=== PATIENT | male | born 1970 | race Caucasian/White ===

== ENCOUNTER 2019-01-17 10:12 | Emergency (ER) | payer SELFPAY ==
[2019-01-17] MEDS ORDERED: NA CHLORIDE 0.9% 1,000 ML ONE (11:08)
--- NOTE | 2019-01-17 11:10 | EKG ---
Test Date: 2019-01-17 Test Time: 11:01:58 Copy Director: MELANY MEASUREMENT RESULTS: Intervals: Rate: 69 MO: 114 QRSD: 80 QT: 410 QTc: 439 Bradford: P: 73 MO: 114 QRS: 78 T: 67 INTERPRETIVE STATEMENTS: Normal sinus rhythm Normal ECG No previous ECG available for comparison Electronically Signed On 01-17-19 11:09:31 CDT by Gerhard Chaney
[2019-01-17 11:14] LABS: Absolute Lymphocytes (CBC) 0.8 K/uL (0.7-4.9); Absolute Monocytes 0.6 K/uL (0.1-1.3); Absolute Neutrophil 6.2 K/uL (1.8-8.0); Basophils % 0.3 % (0-1.3); Eosinophils % 1.1 % (0-4.4); Hematocrit 49.7 % (39.6-49.0); Lymphocytes % 10.9 % (15.3-44.8); MPV 7.3 fL (7.6-11.3); Monocytes % 7.5 % (3.3-12.3); RBC Red Blood Cell Count 5.01 M/uL (4.33-5.43)
[2019-01-17 11:16] LABS: Protime INR 0.92
--- NOTE | 2019-01-17 11:18 | RAD REPORT ---
EXAM DESCRIPTION: CT - Head Brain Wo Cont - 01/17/2019 11:09 am CLINICAL HISTORY: DIZZINESS Headache, drowsiness. COMPARISON: No comparisons TECHNIQUE: All CT scans are performed using dose optimization technique as appropriate and may inclu de automated exposure control or mA/KV adjustment according to patient size. FINDINGS: The ventricular system is quite prominent in size. This is greater than can be explained b y cortical atrophy. Likely, this represents hydrocephalus.No acute bleed or midline shift. Mild mucoperiosteal thickening is present in the frontal, ethmoid sinuses. Mild mucoperiosteal thicke jevon is seen maxillary antra and sphenoid sinuses. The calvarium is intact. IMPRESSION: The ventricles appear quite enlarged likely representing hydrocephalus. No comparative brain imaging is available at this institution to determine acute versus chronic timeframe for this f inding. Mild mucoperiosteal thickening throughout paranasal sinuses, greatest in anterior ethmoid air cells.
--- NOTE | 2019-01-17 11:21 | RAD REPORT ---
EXAM DESCRIPTION: RAD - Chest Single View - 01/17/2019 11:17 am CLINICAL HISTORY: dizziness Chest pain. COMPARISON: No comparisons FINDINGS: Portable technique limits examination quality. The lungs are grossly clear. The heart is normal in size. No displaced fractures. IMPRESSION: No acute intrathoracic process suspected.
[2019-01-17 11:33] LABS: ALT/SGPT 90 U/L (12-78); AST/SGOT 104 U/L (15-37); Albumin 4.3 g/dL (3.4-5.0); Alkaline Phosphatase 76 U/L (45-117); BUN Blood Urea Nitrogen 7 mg/dL (7-18); Bicarbonate 23 mmol/L (21-32); Bilirubin Direct 0.3 mg/dL (0-0.2); Glucose Level 94 mg/dL (74-106); Magnesium 1.8 mg/dL (1.8-2.4); NT PRO-BNP 11 pg/mL (<125); Potassium 4.6 mmol/L (3.5-5.1); Protein, Total 7.9 g/dL (6.4-8.2); Sodium Level 132 mmol/L (136-145); Troponin (Emerg Dept Use Only) < 0.02 ng/mL (0.0-0.045)
[2019-01-17] MEDS ORDERED: ONDANSETRON 4 MG/2 ML VIAL ONE (11:34)
[2019-01-17] MEDS ORDERED: MECLIZINE HCL 12.5 MG TAB ONE (11:34)
--- NOTE | 2019-01-17 11:53 | ER ---
Nurse's Notes [facility] Name: Herson Guy Age: 48 yrs Sex: Male : 1970 Arrival Date: 01/17/2019 Time: 10:15 Bed 4 Private MD: Diagnosis: Dizziness and giddiness;Hydrocephalus in diseases classified elsewhere;Acute sinusitis;Essential (primary) hypertension Presentation: 01/17 10:20 Presenting complaint: Patient states: "Sinus problems" for 1 week. Went to see Dr Whit bernardo this morning and was referred to ER. Patient reports dizziness. Transition of care: patient was not received from another setting of care. Onset of symptoms was January 12, 2019. Risk Assessment: Do you want to hurt yourself or someone else? Patient reports no desire to harm self or others. Initial Sepsis Screen: Does the patient meet any 2 criteria? No. Patient's initial sepsis screen is negative. Does the patient have a suspected source of infection? No. Patient's initial sepsis screen is negative. Care prior to arrival: None. 10:20 Method Of Arrival: Wheelchair 10:20 Acuity: JASMINE 3 aj Triage Assessment: 10:22 General: Appears in no apparent distress. uncomfortable, Behavior is calm, cooperative. aj Pain: Denies pain. EENT: Reports pain in right eye, right cheek, nose, left cheek and left eye. Neuro: Level of Consciousness is awake, alert, obeys commands, Oriented to person, place, time, situation, Appropriate for age. Respiratory: Airway is patent Respiratory effort is even, unlabored, Respiratory pattern is regular, symmetrical. Derm: Skin is intact, is healthy with good turgor, Skin is pink, warm \\T\\ dry. normal. Historical: - Allergies: 10:22 No Known Allergies; aj - PMHx: 10:22 Hypertension; aj - PSHx: 10:22 None; aj - Immunization history:: Adult Immunizations up to date. - Social history:: Smoking status: Patient uses tobacco products, smokes two packs cigarettes per day. - Ebola Screening: : Patient negative for fever greater than or equal to 101.5 degrees Fahrenheit, and additional compatible Ebola Virus Disease symptoms Patient denies exposure to infectious person Patient denies travel to an Ebola-affected area in the 21 days before illness onset No symptoms or risks identified at this time. Screenin:34 Abuse screen: Denies threats or abuse. Denies injuries from another. Nutritional sv screening: No deficits noted. Tuberculosis screening: No symptoms or risk factors identified. Fall Risk None identified. Assessment: 10:45 General: Appears in no apparent distress. uncomfortable, well developed, Behavior is sv calm, cooperative, appropriate for age. Pain: Complains of pain in forehead, right eye and left eye Pain currently is 5 out of 10 on a pain scale. Quality of pain is described as pressure, Pain began 1 week ago Is continuous. Neuro: Level of Consciousness is awake, alert, obeys commands, Oriented to person, place, time, situation, Moves all extremities. Full function Gait is steady, Speech is normal, Facial symmetry appears normal, Pupils are PERRLA, Reports dizziness, Denies blurred vision numbness diplopia. Cardiovascular: Heart tones S1 S2 present Rhythm is sinus rhythm. Respiratory: Airway is patent Respiratory effort is even, unlabored, Respiratory pattern is regular, symmetrical, Breath sounds are clear bilaterally. Derm: Skin is pink, warm \\T\\ dry. 11:30 Reassessment: Patient appears in no apparent distress at this time. No changes from sv previously documented assessment. Patient and/or family updated on plan of care and expected duration. Pain level reassessed. Patient is alert, oriented x 3, equal unlabored respirations, skin warm/dry/pink. 12:00 Reassessment: Patient appears in no apparent distress at this time. Patient and/or sv family updated on plan of care and expected duration. Pain level reassessed. Patient is alert, oriented x 3, equal unlabored respirations, skin warm/dry/pink. Patient states feeling better. Patient states symptoms have improved. GI: Patient currently denies nausea. 13:23 Reassessment: Patient appears in no apparent distress at this time. No changes from sv previously documented assessment. Patient and/or family updated on plan of care and expected duration. Pain level reassessed. Patient is alert, oriented x 3, equal unlabored respirations, skin warm/dry/pink. 14:03 Reassessment: Patient appears in no apparent distress at this time. Patient and/or sv family updated on plan of care and expected duration. Pain level reassessed. Patient is alert, oriented x 3, equal unlabored respirations, skin warm/dry/pink. Report given to [facility]. Vital Signs: 10:22 BP 125 / 75; Pulse 86; Resp 17; Temp 97.5(O); Pulse Ox 100% on R/A; Weight 77.11 kg; aj Height 5 ft. 11 in. (180.34 cm); 11:35 BP 124 / 86; Pulse 85; Resp 17; Pulse Ox 100% on R/A; sv 12:30 Pulse 88; Resp 16; Pulse Ox 99% ; sv 13:22 BP 144 / 94; Pulse 93 MON; Resp 16; Pulse Ox 96% on R/A; sv 14:02 BP 113 / 78; Pulse 87; Resp 17; Pulse Ox 97% on R/A; sv 10:22 Body Mass Index 23.71 (77.11 kg, 180.34 cm) aj 12:30 Sinus Rhythm sv 13:22 Sinus Rhythm sv ED Course: 10:15 Patient arrived in ED. ds1 10:21 Triage completed. aj 10:22 Arm band placed on left wrist. Patient placed in waiting room, Patient notified of wait aj time. 10:33 Vicente Arshad MD is Attending Physician. [facility] 10:34 Ailyn Turner, BK is Primary Nurse. sv 10:34 Patient has correct armband on for positive identification. Bed in low position. Call sv light in reach. Door closed. Head of bed elevated. 10:35 Awaiting ED provider evaluation. sv 10:45 Initial lab(s) drawn, by mn, sent to lab. Inserted saline lock: 20 gauge in left sv antecubital area, using aseptic technique. Blood collected. Flushed left antecubital with 5 ml normal saline. 11:03 EKG done, by technician assistant. reviewed by Vicente Arshad MD. sm3 11:11 CT Head Brain wo Cont In Process Unspecified. EDMS 11:13 X-ray completed. Patient tolerated procedure well. Patient moved to radiology via jb2 stretcher. Patient moved back from radiology. 11:18 XRAY Chest (1 view) In Process Unspecified. EDMS 11:45 Urine collected: clean catch specimen, clear. ms 12:24 Patient moved to MRI via stretcher. sv 12:54 MRI - Brain Wo Cont In Process Unspecified. EDMS 13:16 No provider procedures requiring assistance completed. Patient transferred, IV remains sv in place. intact. 13:26 transfer transportation to receiving facility. sv Administered Medications: 10:50 Drug: NS 0.9% 1000 ml Route: IV; Rate: 1 bolus; Site: left antecubital; sv 12:00 Follow up: Response: No adverse reaction; IV Status: Completed infusion; IV Intake: sv 1000ml 11:31 Drug: Meclizine 50 mg Route: PO; sv 12:00 Follow up: Response: No adverse reaction sv 11:31 Drug: Zofran 4 mg Route: IVP; Site: left antecubital; sv 12:00 Follow up: Response: No adverse reaction; Marked relief of symptoms; Nausea is decreasedsv 12:00 Drug: Rocephin - (cefTRIAXone) 1 grams Route: IVPB; Infused Over: 30 mins; Site: left sv antecubital; 12:03 Follow up: Response: No adverse reaction; IV Status: Completed infusion; IV Intake: 10mlsv 12:00 Drug: Thiamine 100 mg Route: IV; Rate: bolus; Site: left antecubital; sv 12:02 Follow up: Response: No adverse reaction; IV Status: Completed infusion; IV Intake: 1ml sv 13:14 Drug: foLIC Acid 1 mg Route: IVPB; Site: left antecubital; sv 13:22 Follow up: Response: No adverse reaction; IV Status: Completed infusion sv 13:14 Drug: Banana Bag - (NS 0.9% 1000 ml, foLIC Acid 1 mg, Thiamine 100 mg, Multivitamin 1 sv amp) Route: IV; Rate: 125 ml/hr; Site: left antecubital; 14:03 Follow up: Response: No adverse reaction; IV Status: Infusion continued upon transfer sv 13:15 Drug: Thiamine 300 mg Route: IV; Rate: per protocol; Site: left antecubital; sv 13:22 Follow up: Response: No adverse reaction; IV Status: Completed infusion sv 13:21 Drug: Nicoderm CQ 21 mg/24 hr 1 patches {Note: applied to left arm.} Route: sv Transdermal; Site: affected area; Intake: 12:00 IV: 1000ml; Total: 1000ml. sv 12:02 IV: 1ml; Total: 1001ml. sv 12:03 IV: 10ml; Total: 1011ml. sv Outcome: 11:53 ER care complete, transfer ordered by . paolo 13:15 Transferred by ground EMS to [facility], Transfer form completed. X-rays sent sv w/ patient. Note: Report called to Aryan BOURGEOIS 13:15 Condition: stable 13:15 Instructed on the need for transfer. 14:03 Patient left the ED. sv Signatures: Dispatcher [employer] Ailyn Park RN RN sv Myers, Amanda, RN RN aj Anderson, Corey, MD MD cha Buechter, Jesse jb2 Sanford, Demi ds1 Solis, Maria ms Montes, Shakira 3
--- NOTE | 2019-01-17 11:54 | EDPHYS ---
Physician Documentation [facility] Name: Herson Guy Age: 48 yrs Sex: Male : 1970 Arrival Date: 01/17/2019 Time: 10:15 Bed 4 Private MD: ED Physician Vicente Arshad HPI: 01/17 11:00 This 48 yrs old Male presents to ER via Wheelchair with complaints of Sinus paolo Congestion, Dizziness. 11:00 The patient or guardian reports cough. Onset: The symptoms/episode began/occurred 2 paolo day(s) ago. Severity of symptoms: At their worst the symptoms were mild, moderate, in the emergency department the symptoms are unchanged. Modifying factors: The symptoms are alleviated by nothing, the symptoms are aggravated by nothing. Associated signs and symptoms:. The patient has not experienced similar symptoms in the past. Historical: - Allergies: 10:22 No Known Allergies; aj - PMHx: 10:22 Hypertension; aj - PSHx: 10:22 None; aj - Immunization history:: Adult Immunizations up to date. - Social history:: Smoking status: Patient uses tobacco products, smokes two packs cigarettes per day. - Ebola Screening: : Patient negative for fever greater than or equal to 101.5 degrees Fahrenheit, and additional compatible Ebola Virus Disease symptoms Patient denies exposure to infectious person Patient denies travel to an Ebola-affected area in the 21 days before illness onset No symptoms or risks identified at this time. ROS: 11:01 Constitutional: Negative for fever, chills, and weight loss, Eyes: Negative for injury, paolo pain, redness, and discharge, ENT: Negative for injury, pain, and discharge, Neck: Negative for injury, pain, and swelling, Cardiovascular: Negative for chest pain, palpitations, and edema, Respiratory: Negative for shortness of breath, cough, wheezing, and pleuritic chest pain, Abdomen/GI: Negative for abdominal pain, nausea, vomiting, diarrhea, and constipation, Back: Negative for injury and pain, : Negative for injury, bleeding, discharge, and swelling, MS/Extremity: Negative for injury and deformity, Skin: Negative for injury, rash, and discoloration, Psych: Negative for depression, anxiety, suicide ideation, homicidal ideation, and hallucinations, Allergy/Immunology: Negative for hives, rash, and allergies, Endocrine: Negative for neck swelling, polydipsia, polyuria, polyphagia, and marked weight changes, Hematologic/Lymphatic: Negative for swollen nodes, abnormal bleeding, and unusual bruising. 11:01 Neuro: Positive for dizziness. Exam: 11: Constitutional: This is a well developed, well nourished patient who is awake, alert, paolo and in no acute distress. Head/Face: Normocephalic, atraumatic. Eyes: Pupils equal round and reactive to light, extra-ocular motions intact. Lids and lashes normal. Conjunctiva and sclera are non-icteric and not injected. Cornea within normal limits. Periorbital areas with no swelling, redness, or edema. ENT: Nares patent. No nasal discharge, no septal abnormalities noted. Tympanic membranes are normal and external auditory canals are clear. Oropharynx with no redness, swelling, or masses, exudates, or evidence of obstruction, uvula midline. Mucous membranes moist. Neck: Trachea midline, no thyromegaly or masses palpated, and no cervical lymphadenopathy. Supple, full range of motion without nuchal rigidity, or vertebral point tenderness. No Meningismus. Chest/axilla: Normal chest wall appearance and motion. Nontender with no deformity. No lesions are appreciated. Cardiovascular: Regular rate and rhythm with a normal S1 and S2. No gallops, murmurs, or rubs. Normal PMI, no JVD. No pulse deficits. Respiratory: Lungs have equal breath sounds bilaterally, clear to auscultation and percussion. No rales, rhonchi or wheezes noted. No increased work of breathing, no retractions or nasal flaring. Abdomen/GI: Soft, non-tender, with normal bowel sounds. No distension or tympany. No guarding or rebound. No evidence of tenderness throughout. Back: No spinal tenderness. No costovertebral tenderness. Full range of motion. Male : Normal genitalia with no discharge or lesions. Skin: Warm, dry with normal turgor. Normal color with no rashes, no lesions, and no evidence of cellulitis. MS/ Extremity: Pulses equal, no cyanosis. Neurovascular intact. Full, normal range of motion. Neuro: Awake and alert, GCS 15, oriented to person, place, time, and situation. Cranial nerves II-XII grossly intact. Motor strength 5/5 in all extremities. Sensory grossly intact. Cerebellar exam normal. Normal gait. Psych: Awake, alert, with orientation to person, place and time. Behavior, mood, and affect are within normal limits. Vital Signs: 10:22 BP 125 / 75; Pulse 86; Resp 17; Temp 97.5(O); Pulse Ox 100% on R/A; Weight 77.11 kg; aj Height 5 ft. 11 in. (180.34 cm); 11:35 BP 124 / 86; Pulse 85; Resp 17; Pulse Ox 100% on R/A; sv 12:30 Pulse 88; Resp 16; Pulse Ox 99% ; sv 13:22 BP 144 / 94; Pulse 93 MON; Resp 16; Pulse Ox 96% on R/A; sv 14:02 BP 113 / 78; Pulse 87; Resp 17; Pulse Ox 97% on R/A; sv 10:22 Body Mass Index 23.71 (77.11 kg, 180.34 cm) aj 12:30 Sinus Rhythm sv 13:22 Sinus Rhythm sv MDM: 10:33 Patient medically screened. [facility] 11:02 Data reviewed: vital signs, nurses notes, lab test result(s), EKG, radiologic studies, [facility] CT scan, plain films. 01/17 10:51 Order name: Basic Metabolic Panel; Complete Time: 11:45 [facility] 01/17 10:51 Order name: CBC with Diff; Complete Time: 11:45 [facility] 01/17 10:51 Order name: LFT's; Complete Time: 11:45 [facility] 01/17 10:51 Order name: Magnesium; Complete Time: 11:45 [facility] 01/17 10:51 Order name: NT PRO-BNP; Complete Time: 11:45 [facility] 01/17 10:51 Order name: PT-INR; Complete Time: 11:45 [facility] 01/17 10:51 Order name: Troponin (emerg Dept Use Only); Complete Time: 11:45 [facility] 01/17 10:51 Order name: XRAY Chest (1 view); Complete Time: 11:45 [facility] 01/17 10:52 Order name: CT Head Brain wo Cont; Complete Time: 11:45 [facility] 01/17 11:00 Order name: Urine Culture [facility] 01/17 11:47 Order name: MRI - Brain Wo Cont [facility] 01/17 11:54 Order name: Urine Dipstick--Ancillary (enter results); Complete Time: 12:56 01/17 10:51 Order name: EKG; Complete Time: 10:53 [facility] 01/17 10:51 Order name: Cardiac monitoring; Complete Time: 11:27 [facility] 01/17 10:51 Order name: EKG - Nurse/Tech; Complete Time: 11:28 [facility] 01/17 10:51 Order name: IV Saline Lock; Complete Time: 11:30 [facility] 01/17 10:51 Order name: Labs collected and sent; Complete Time: 11:30 [facility] 01/17 10:51 Order name: O2 Per Protocol; Complete Time: 11:30 [facility] 01/17 10:51 Order name: O2 Sat Monitoring; Complete Time: 11:30 [facility] 01/17 11:00 Order name: Urine Dipstick-Ancillary (obtain specimen); Complete Time: 11:45 [facility] Administered Medications: 10:50 Drug: NS 0.9% 1000 ml Route: IV; Rate: 1 bolus; Site: left antecubital; sv 12:00 Follow up: Response: No adverse reaction; IV Status: Completed infusion; IV Intake: sv 1000ml 11:31 Drug: Meclizine 50 mg Route: PO; sv 12:00 Follow up: Response: No adverse reaction sv 11:31 Drug: Zofran 4 mg Route: IVP; Site: left antecubital; sv 12:00 Follow up: Response: No adverse reaction; Marked relief of symptoms; Nausea is decreasedsv 12:00 Drug: Rocephin - (cefTRIAXone) 1 grams Route: IVPB; Infused Over: 30 mins; Site: left sv antecubital; 12:03 Follow up: Response: No adverse reaction; IV Status: Completed infusion; IV Intake: 10mlsv 12:00 Drug: Thiamine 100 mg Route: IV; Rate: bolus; Site: left antecubital; sv 12:02 Follow up: Response: No adverse reaction; IV Status: Completed infusion; IV Intake: 1ml sv 13:14 Drug: foLIC Acid 1 mg Route: IVPB; Site: left antecubital; sv 13:22 Follow up: Response: No adverse reaction; IV Status: Completed infusion sv 13:14 Drug: Banana Bag - (NS 0.9% 1000 ml, foLIC Acid 1 mg, Thiamine 100 mg, Multivitamin 1 sv amp) Route: IV; Rate: 125 ml/hr; Site: left antecubital; 14:03 Follow up: Response: No adverse reaction; IV Status: Infusion continued upon transfer sv 13:15 Drug: Thiamine 300 mg Route: IV; Rate: per protocol; Site: left antecubital; sv 13:22 Follow up: Response: No adverse reaction; IV Status: Completed infusion sv 13:21 Drug: Nicoderm CQ 21 mg/24 hr 1 patches {Note: applied to left arm.} Route: sv Transdermal; Site: affected area; Disposition: 01/17/19 11:53 Transfer ordered to [facility]. Diagnosis are Dizziness and giddiness, Hydrocephalus in diseases classified elsewhere, Acute sinusitis, Essential (primary) hypertension. - Reason for transfer: Higher level of care. - Accepting physician is to [facility], neuro. - Condition is Fair. - Problem is new. - Symptoms have improved. Signatures: Dispatcher [employer] Ailyn Park RN RN sv Myers, Amanda, RN RN aj Anderson, Corey, MD MD cha Corrections: (The following items were deleted from the chart) 14:03 11:53 01/17/2019 11:53 Transfer ordered to [facility]. Diagnosis is sv Dizziness and giddiness; Hydrocephalus in diseases classified elsewhere; Acute sinusitis; Essential (primary) hypertension. Reason for transfer: Higher level of care. Accepting physician is to [facility], neuro. Condition is Fair. Problem is new. Symptoms have improved. paolo
[2019-01-17] MEDS ORDERED: THIAMINE 200 MG/2 ML INJ ONE ×2 (12:13→12:24)
[2019-01-17] MEDS ORDERED: CEFTRIAXONE/SWI 1gm 1 GM/10 ML SYR ONE (12:13)
[2019-01-17] MEDS ORDERED: FOLIC ACID 5 MG/ML VIAL ONE (12:25)
[2019-01-17 12:37] LABS: Urine Blood NEGATIVE (NEG); Urine Glucose NEGATIVE (NEG); Urine Protein NEGATIVE (NEG); Urine Specific Gravity 1.015 (1.005-1.030); Urine pH 7.5 (5.0-7.0)
[2019-01-17] MEDS ORDERED: NA CHLORIDE 0.9% 1,000 ML with FOLIC ACID 1 MG, THIAMINE HCL 100 MG, MULTIVITAMINS INJ ... IV ONE ×4 (13:00)
--- NOTE | 2019-01-17 13:05 | RAD REPORT ---
EXAM DESCRIPTION: MRI - Brain Wo Cont - 01/17/2019 12:54 pm CLINICAL HISTORY: Dizziness COMPARISON: January 17, [address] TECHNIQUE: Axial, sagittal, and coronal magnetic images of the brain were obtained. Contrast was not requested FINDINGS: The fourth, third and lateral ventricles are dilated. No abnormal signal is present within the brain. Diffusion-weighted/ADC mapping does not reveal evidence of acute infarction. The ventricles are normal caliber. An extra-axial fluid collection is not present Marked signal is present within the ethmoid sinus consistent with sinusitis. Mild mucoperiosteal thic kening involves remainder the sinuses. Mastoids are clear. IMPRESSION: Moderate communicating hydrocephalus
[2019-01-17] MEDS ORDERED: NICOTINE 21 MG/PAT TD ONE (13:27)
== END 2019-01-17 14:03 | disposition short-term general hospital (02) ==
LOC: ER 10:12
DX: R42 Dizziness and giddiness (principal); G91.4 Hydrocephalus in diseases classified elsewhere; J01.90 Acute sinusitis, unspecified; I10 Essential (primary) hypertension; F17.210 Nicotine dependence, cigarettes, uncomplicated
CPT/HCPCS: 36415; 70450; 70551; 71045; 80048; 80076; 81003; 83735; 83880; 84484; 85025; 85610; 87086; 87088; 93005; 96361; 96365; 96375; 99285; J0696; J2405; J3411; J7030